=== PATIENT | female | born 1950 | race Hispanic/Latino ===

== ENCOUNTER → 2020-12-24 06:54 | Outpatient (CLI) | payer MEDICARE, SELFPAY ==
[2020-12-24 17:32] LABS: SARS-CoV-2 RNA PCR Negative
== END ==
PROVIDERS: PCP Family Medicine; Visit Provider Family Medicine
DX: R68.89 Other general symptoms and signs (principal); Z20.822 Contact with and (suspected) exposure to COVID-19
CPT/HCPCS: C9803; U0003; U0005

== ENCOUNTER → 2021-09-21 08:14 | Outpatient (CLI) | payer MEDICARE, SELFPAY ==
[2021-09-22 03:58] LABS: SARS-CoV-2 RNA PCR Negative
== END ==
PROVIDERS: PCP Family Medicine; Visit Provider Family Medicine
DX: R09.81 Nasal congestion (principal); R05.9 Cough, unspecified; Z20.822 Contact with and (suspected) exposure to COVID-19
CPT/HCPCS: C9803; U0003; U0005

== ENCOUNTER → 2021-10-16 00:16 | Outpatient (CLI) | payer MEDICARE, SELFPAY ==
[2021-10-16 20:23] LABS: SARS-CoV-2 RNA PCR Negative
== END ==
PROVIDERS: PCP Family Medicine; Visit Provider Family Medicine
DX: J02.9 Acute pharyngitis, unspecified (principal); R51.9 Headache, unspecified; R09.89 Other specified symptoms and signs involving the circulatory and respiratory systems; Z20.822 Contact with and (suspected) exposure to COVID-19
CPT/HCPCS: C9803; U0003; U0005

== ENCOUNTER 2022-09-05 08:59 | Outpatient (CLI) | payer MEDICARE, SELFPAY ==
--- NOTE | 2022-09-12 14:21 | WPDHOMESLEEP ---
Sleep Study - Home Unattended Date of Study: 09/05/22 Ordering Provider: Patricia Carty PA-C Interpreting Provider: Yola Putnam, DO Home Sleep Study Type: Watch PAT Height: 1.75 m Weight: 108.862 kg Body Mass Index: 35.4 Neck Circumference (inches): 14.25 [place]: 7 Reason for Sleep Study Loud snoring, nighttime awakenings Sleep History The patient is a 72-year-old female with hypertension, diabetes, hypothyroidism, chronic headaches, anxiety and history of tobacco use that had a sleep study ordered by her primary care for evaluation of sleep apnea. The patient denies awakening from sleep short of breath. She rarely awakens at night with heartburn, belching or cough. She constantly snores loud enough that others complain. She denies having trouble sleeping when she has a cold. She denies waking up gasping for air throughout the night. She denies having breathing problems at night observed by herself or others. She denies sweating excessively at night. She occasionally has heart palpitations or irregular heartbeats during the night. She rarely falls asleep during the day and never while driving. She denies sleep paralysis and hypnagogic/ hypnopompic hallucinations. She denies having trouble at school or work due to sleepiness. She denies feeling afraid of going to sleep. She occasionally has nightmares and frequently remembers her dreams. She frequently has thoughts racing through her mind. She rarely feels sad or depressed. She frequently has anxiety. She rarely has muscular tension. He denies noticing parts of her body jerk. She denies experiencing crawling and aching feelings in her legs and occasionally has leg pain during the night. She frequently grinds her teeth during sleep but never awakens with morning jaw pain. She is rarely bothered by pain during the day and rarely awakened by pain during the night. He occasionally wakes up feeling stiff in the morning. He rarely wakes up with sore or achy muscles. She denies waking up with pain in the neck, spine or other joints. She goes to bed between 11:30 p.m. to 12:30 a.m. on both weekdays and weekends. The amount of time it takes her to fall asleep is variable. He wakes up 1-2 times throughout the night to urinate. He wakes up between 8-10 a.m. on both weekdays and weekends. She typically gets 8-10 hours of sleep per night. She will stay in bed for a few minutes after waking up in the morning. She currently lives alone. He does not consume any caffeinated beverages within 2 hours of bedtime. She does not engage in physical exercise before bedtime. She will watch television before falling asleep. She denies taking naps in the afternoon or the evening. She drinks 1-2 cups of caffeinated beverage per day. She quit smoking 35 years ago. She denies alcohol and recreational drug use. [facility] Past Medical History Medical History Chronic headaches History of chicken pox History of measles History of mumps History of rubella Family History Family History Sibling Hypertension Mother Patient's mother is Family history of lung cancer Father Patient's father is Family history of lung cancer Other Family history of malignant neoplasm of breast Social History Social History Social History: Caffeine-daily Smoking status: Former smoker Smoking end date: 09/25/86 Alcohol intake: current Alcohol use details: occasionally Substance use: never Substance use type: does not use Gender identity (if verbalized by the patient): Female Medications Home Medications Medication Instructions Recorded Confirmed Type ascorbic acid (vitamin C) 1,000 mg 1 g PO DAILY 07/31/20 08/03/22 History tablet calcium carbonate 600 mg calcium 600 mg PO STEPHANIE
[2022-09-12 14:36] VITALS: BMI 35.4
== END 2022-09-06 11:41 | disposition home or self-care (01) ==
LOC: ANHCSM 09:01
PROVIDERS: PCP Family Medicine; Visit Provider Physician Assistant
DX: G47.33 Obstructive sleep apnea (adult) (pediatric) (principal)
CPT/HCPCS: 95800

== ENCOUNTER → 2022-12-27 10:53 | Outpatient (CLI) | payer MEDICARE, SELFPAY ==
--- NOTE | ~2022-12-27 | XR_ITS ---
EXAMINATION: XR chest 2V Exam Date/Time: 12/27/2022 11:05 CDT HISTORY: LEFT SIDE INTERMITENT CP FOR 3 MONTHS Comparison: None available. RESULT: Lines, tubes, and devices: Cholecystectomy clips. Lungs and pleura: Patient mildly rotated towards the right. Senescent changes. Ill-defined nodular o pacity in the right lower lung. Cardiomediastinal silhouette: Mild aortic unfolding. Prominent central pulmonary arteries as can be seen with pulmonary arterial hypertension. Other: No acute osseous or upper abdominal finding. IMPRESSION: No radiographic finding in the chest that would explain left-sided chest pain. Nodular opacity in the right lower lung, recommend comparison to outside studies if available. Otherwise, consider low-dose noncontrast CT of the chest for further evaluation. Reviewed, dictated and finalized at location K. IMPRESSION: No radiographic finding in the chest that would explain left-sided chest pain. Nodular opacity in the right lower lung, recommend comparison to outside studie s if available. Otherwise, consider low-dose noncontrast CT of the chest for fu rther evaluation.
== END ==
PROVIDERS: PCP Family Medicine; Visit Provider Physician Assistant
DX: R07.9 Chest pain, unspecified (principal); R91.8 Other nonspecific abnormal finding of lung field
CPT/HCPCS: 71046

== ENCOUNTER 2023-10-04 05:52 | Emergency (ER) | payer MEDICARE, SELFPAY ==
[2023-10-04] VITALS (16 sets, daily range): BP systolic 99–153; BP diastolic 54–87; PULSE 59–87; RESP 10–20; TEMP 36.4–36.8; O2SAT 95–100
--- NOTE | ~2023-10-04 | XR_ITS ---
Portable chest x-ray Comparison: 12/27/2022 Clinical History: Chest pain Findings: Lungs are clear, without focal consolidation or pleural effusion. Probable calcified granu arabella and small calcified right paratracheal lymph node. Cardiomediastinal silhouette is stable. Bon es and soft tissues are unremarkable. Impression: No acute abnormality evident. Reviewed, dictated and finalized at [facility]. [employer] Impression: No acute abnormality evident.
--- NOTE | 2023-10-04 05:58 | ECG_ITS ---
Measurements Intervals [place] Rate: 80 P: 46 AR: 216 QRS: 14 QRSD: 90 T: 46 QT: 367 QTc: 426 Interpretive Statements SINUS RHYTHM WITH FIRST DEGREE AV BLOCK BORDERLINE ST ABNORMALITY- ANTEROLATERAL LEADS BASELINE ARTIFACT- I, II, AVR, AVL BORDERLINE ECG NO PREVIOUS ECG AVAILABLE FOR COMPARISON Electronically Signed On 10-04-2023 6:54:57 GLAZING SUPERINTENDENT by Hudson Chan D.O.
[2023-10-04] MEDS: ASPIRIN 81 MG CHEWABLE TABLET 324 MG (06:11)
[2023-10-04] MEDS: NITROGLYCERIN SL 0.4 MG TABLET SUBLINGUAL (06:11)
[2023-10-04 06:13] LABS: Basophils Percent Auto 0.5 % (0.2-1.2); Eosinophils Absolute Auto 0.1 K/mm3 (0-0.3); Eosinophils Percent Auto 1.7 % (0-4.4); Hematocrit 38.7 % (37.0-47.0); Hemoglobin 12.2 g/dL (12.0-15.0); Immature Granulocyte Absolute 0.01 K/mm3 (0.00-0.031); Immature Granulocyte Percent A 0.2 % (0-0.5); Lymphocytes Absolute Auto 2.73 K/mm3 (0.9-3.2); Lymphocytes Percent Auto 41.4 % (18.3-44.2); Mean Corpuscular HGB Conc 31.5 g/dl (32-36); Mean Corpuscular Hemoglobin 30.5 pg (26-34); Mean Corpuscular Volume 96.8 fl (80-100); Mean Platelet Volume 10.6 fl (7.4-10.4); Monocytes Absolute Auto 0.4 K/mm3 (0.1-0.6); Monocytes Percent Auto 6.1 % (2.6-8.5); Neutrophils Absolute Auto 3.3 K/mm3 (1.3-6.7); Neutrophils Percent Auto 50.1 % (45.5-73.1); Platelet Count Result 210 k/mm3 (150-375); Red Cell Distribution Width 13.9 % (11.5-14.5); White Blood Count 6.6 K/mm3 (4.5-10.0)
--- NOTE | 2023-10-04 06:19 | ED.GENADULT ---
HPI - General Adult General Chief complaint: Chest Pain <Alessio Vale MD - Last Filed: 10/04/23 06:20> Stated complaint: chest pain <Alessio Vale MD - Last Filed: 10/04/23 06:20> Time Seen by Provider: 10/04/23 06:09 <Alessio Vale MD - Last Filed: 10/04/23 06:20> History of Present Illness HPI narrative: Patient is a 73-year-old female who presents emergency department with chief complaint of chest pain. Patient reports she does have history of hiatal hernia this evening she woke up and started having discomfort in her left side of her chest behind her left breast. The patient states it is a fullness feeling reports no shortness of breath denies diaphoresis denies radiation to her arm. The patient reports she has had a stress test in the past and actually had a cardiac catheterization in 2018 the patient reports these did not show any acute abnormality <Alessio Vale MD - Last Filed: 10/04/23 06:20> Related Data Home medications: Home Medications Medication Instructions Recorded Confirmed ascorbic acid (vitamin C) 1,000 mg 1 g PO DAILY 07/31/20 04/12/23 tablet cholecalciferol (vitamin D3) 25 25 mcg PO DAILY 07/31/20 04/12/23 mcg (1,000 unit) capsule aspirin 81 mg tablet,delayed 81 mg PO DAILY 12/08/20 04/12/23 release CPAP 02/06/23 04/12/23 <Alessio Vale MD - Last Filed: 10/04/23 06:20> Allergies/adverse reactions: Allergies Allergy/AdvReac Type Severity Reaction Status Date / Time lisinopril Allergy Unknown Cough Verified 07/14/23 09:58 <Alessio Vale MD - Last Filed: 10/04/23 06:20> Review of Systems Review of Systems: A 10 system review of systems was completed on the patient and is negative except for what is stated in the HPI. Nursing and ancillary documentation was reviewed. <Alessio Vale MD - Last Filed: 10/04/23 06:20> [facility] Past Medical History Medical History: Medical History Chronic headaches History of chicken pox History of measles History of mumps History of rubella RUDDY (obstructive sleep apnea) <Alessio Vale MD - Last Filed: 10/04/23 06:20> Family History Family History: Family History Sibling Hypertension Mother Patient's mother is Family history of lung cancer Father Patient's father is Family history of lung cancer Other Family history of malignant neoplasm of breast <Alessio Vale MD - Last Filed: 10/04/23 06:20> Social History Social History: Social History Social History: Caffeine-daily Smoking status: Former smoker Smoking end date: 09/25/86 Alcohol intake: current Alcohol use details: occasionally Substance use: never Substance use type: does not use Lack of Transportation: No Lack of Food: Never True Current Housing: I Have Housing Concerned About Future Housing: No Difficulty Paying Gas/Electric Bills: No Difficulty Paying for Meds: No Currently Unemployed: No Education: High School Diploma/GED Difficulty w/ Childcare or Family Care: No Gender identity (if verbalized by the patient): Female <Alessio Vale MD - Last Filed: 10/04/23 06:20> Exam Narrative: GENERAL: Well-appearing, well-nourished, and in no acute distress. HEAD: Normocephalic, atraumatic. EYES: PERRLA and EOMI. ENT: Nares clear, no rhinorrhea or epistaxis. Mucous membranes moist. NECK: Supple. CHEST: Clear to auscultation. No respiratory distress. HEART: Regular rate and rhythm. No murmur heard. Normal peripheral pulses. ABDOMEN: Soft, nontender, nondistended, normal active bowel sounds. EXTREMITIES: Normal range of motion. No edema. SKIN: Warm, dry, no rash. NEURO: No fo
[2023-10-04 06:26] LABS: Alanine Aminotransferase 17 U/L (6-35); Albumin Level 4.5 g/dL (3.5-5.1); Alkaline Phosphatase 90 U/L (38-126); Anion Gap 9 mmol/L (8-16); Aspartate Amino Transferase 27 U/L (14-36); Bilirubin,Total 0.4 mg/dL (0.2-1.3); Blood Urea Nitrogen 24 mg/dL (7-17); Calcium 10.1 mg/dL (8.4-10.2); Carbon Dioxide 29 mmol/L (22-30); Chloride 101 mmol/L (98-107); Estimated CRCL calculation 59 ml/min; Estimated Glomerular Filt Rate 55; Glucose 146 mg/dL (65-110); Lipase 262 U/L (23-300); Potassium 3.1 mmol/L (3.4-5.0); Sodium 139 mmol/L (137-145)
[2023-10-04 06:37] LABS: Troponin I < 0.012 ng/mL (0.000-0.034)
[2023-10-04 06:48] LABS: Prothrombin Time 13.1 Seconds (11.1-14.7)
[2023-10-04 06:49] LABS: Partial Thromboplastin Time 30.6 SECONDS (22.3-36.8)
--- NOTE | 2023-10-04 09:02 | ECG_ITS ---
Measurements Intervals [place] Rate: 62 P: 26 [place]: 243 QRS: 0 QRSD: 94 T: 30 QT: 395 QTc: 403 Interpretive Statements SINUS RHYTHM WITH FIRST DEGREE AV BLOCK BORDERLINE ECG COMPARED TO ECG 10/04/2023 06:06:56 NO SIGNIFICANT CHANGES Electronically Signed On 10-04-2023 9:44:53 TABLEAU ANALYST by Hudson Chan D.O.
[2023-10-04 09:22] LABS: Troponin I < 0.012 ng/mL (0.000-0.034)
== END 2023-10-04 10:49 | disposition home or self-care (01) ==
PROVIDERS: Emergency Provider Emergency Medicine; PCP Family Medicine
DX: R07.9 Chest pain, unspecified (principal); Z87.891 Personal history of nicotine dependence
CPT/HCPCS: 36415; 71045; 80053; 83690; 84484; 85025; 85610; 85730; 93005; 99284; A9270

== ENCOUNTER 2024-03-04 13:45 | Outpatient (CLI) | payer MEDICARE, SELFPAY ==
[2024-03-04 15:21] LABS: Basophils Percent Auto 0.5 % (0.2-1.2); Eosinophils Absolute Auto 0.1 K/mm3 (0-0.3); Eosinophils Percent Auto 0.8 % (0-4.4); Hematocrit 38.5 % (37.0-47.0); Hemoglobin 12.4 g/dL (12.0-15.0); Immature Granulocyte Absolute 0.02 K/mm3 (0.00-0.031); Immature Granulocyte Percent A 0.3 % (0-0.5); Lymphocytes Absolute Auto 2.02 K/mm3 (0.9-3.2); Lymphocytes Percent Auto 27.7 % (18.3-44.2); Mean Corpuscular HGB Conc 32.2 g/dl (32-36); Mean Corpuscular Volume 96.3 fl (80-100); Monocytes Absolute Auto 0.3 K/mm3 (0.1-0.6); Monocytes Percent Auto 4.5 % (2.6-8.5); Neutrophils Absolute Auto 4.8 K/mm3 (1.3-6.7); Neutrophils Percent Auto 66.2 % (45.5-73.1); Platelet Count Result 234 k/mm3 (150-375); Red Cell Distribution Width 14.6 % (11.5-14.5); White Blood Count 7.3 K/mm3 (4.5-10.0)
[2024-03-04 15:31] LABS: Prothrombin Time 13.4 Seconds (11.1-14.7)
[2024-03-04 15:44] LABS: Alanine Aminotransferase 14 U/L (6-35); Albumin Level 4.7 g/dL (3.5-5.1); Alkaline Phosphatase 86 U/L (38-126); Anion Gap 7 mmol/L (4-12); Aspartate Amino Transferase 22 U/L (14-36); Bilirubin,Total 0.5 mg/dL (0.2-1.3); Blood Urea Nitrogen 21 mg/dL (7-17); Calcium 10.4 mg/dL (8.4-10.2); Carbon Dioxide 29 mmol/L (22-30); Chloride 104 mmol/L (98-107); Estimated Glomerular Filt Rate > 60; Glucose 98 mg/dL (65-110); Potassium 3.5 mmol/L (3.4-5.0); Sodium 140 mmol/L (137-145)
== END 2024-03-04 13:46 | disposition home or self-care (01) ==
PROVIDERS: PCP Family Medicine; Visit Provider Urology
DX: N81.4 Uterovaginal prolapse, unspecified (principal); Z01.818 Encounter for other preprocedural examination
CPT/HCPCS: 36415; 80053; 85025; 85610; 85730; 86850; 86900; 86901

== ENCOUNTER 2024-03-10 19:10 | Emergency (ER) | payer MEDICARE, SELFPAY ==
--- NOTE | ~2024-03-10 | CT_ITS ---
CT abdomen pelvis w con Ordering provider: Christelle Rhodes PA-C History: 74 years Female with . low abd pain, diarrhea, fever . Comparison: September 22, 2004 Technique: CT abdomen and pelvis with IV and without oral contrast. Radiation reduction technique uti lized. DLP is 979.96 mGy. Findings: VISUALIZED LOWER CHEST: Nodule in the right lower lobe measuring 6 mm. Dependent atelectatic changes. UPPER ABDOMINAL ORGANS: Liver: Normal. Gallbladder: Status post cholecystectomy. Spleen: Normal. Stomach/duodenum: Normal. Pancreas: Normal. Adrenals: Normal. Kidneys: Cysts in the left kidney mid pole measuring 1 cm. PELVIC ORGANS: The bladder is normal. BOWEL AND MESENTERY: Colon: No masses seen in the sigmoid colon which measures 6.2 x 4.8 x 6.1 cm with minimal surrounding fat stranding. This may be a mass are due to diverticulitis. Sigmoidoscopy is advised... Normal appe ndix. Small Bowel: Normal. No obstruction. Peritoneum/mesentery: No free air. Minimal free fluid in the pelvis. No mesenteric lymphadenopathy. RETROPERITONEUM: Mild atheromatous disease of the abdominal aorta. Tortuous slightly dilated iliac a rteries. No retroperitoneal lymphadenopathy. Small para-aortic lymph nodes are noted MUSCULOSKELETAL: Superficial soft tissues: The superficial soft tissues are normal. Bones: Age appropriate degenerative changes of the spine. IMPRESSION: 1. Highly suggestive mass in the sigmoid colon with surrounding fat stranding. This may be malignant or inflammatory. Sigmoidoscopy is advised. 2. Minimal fluid in the pelvis. 3. No evidence of obstruction. Reviewed, dictated and finalized at location A.
--- NOTE | ~2024-03-10 | XR_ITS ---
XR chest 2V Ordering provider: Christelle Rhodes PA-C History: 74 years Female with . fever . Comparison: October 04, 2023 FINDINGS: MEDIASTINUM: The cardiac silhouette is not enlarged. LUNGS: No infiltrates, effusions or pneumothorax. OTHER: No free air under the diaphragm. Degenerative changes of the spine. IMPRESSION: No acute cardiopulmonary pathology. Reviewed, dictated and finalized at location A.
[2024-03-10 19:16] VITALS: BP 137/67; PULSE 97; RESP 19; TEMP 37.2; O2SAT 97
--- NOTE | 2024-03-10 19:30 | ED.FEVER ---
HPI - Fever General Chief Complaint: Fever Stated Complaint: fever Time Seen by Provider: 03/10/24 19:18 Source: patient Mode of arrival: ambulatory Limitations: no limitations History of Present Illness HPI Narrative: This is a 74-year-old female that presents to the emergency department for fever today. Reports over the last couple of days she has had some lower abdominal discomfort. She has also had some loose stools. Today she developed a fever which prompted her to be seen. She is supposed to have a surgery tomorrow morning. Denies cough, congestion, sore throat, vomiting, or dysuria Related Data Home Medications Medication Instructions Recorded Confirmed ascorbic acid (vitamin C) 1,000 mg 1 g PO DAILY 07/31/20 03/04/24 tablet cholecalciferol (vitamin D3) 25 25 mcg PO DAILY 07/31/20 03/04/24 mcg (1,000 unit) capsule aspirin 81 mg tablet,delayed 81 mg PO DAILY 12/08/20 03/04/24 release CPAP 02/06/23 11/20/23 xcghdjcycf-agoczecategxa-stvmxmqf 1 tablet PO TID PRN Headache 03/04/24 03/04/24 50 mg-325 mg-40 mg tablet triamterene 37.5 1 cap PO QAM 03/04/24 03/04/24 mg-hydrochlorothiazide 25 mg capsule Allergies Allergy/AdvReac Type Severity Reaction Status Date / Time lisinopril AdvReac Unknown Cough Verified 03/10/24 19:21 Review of Systems Review of Systems: CONSTITUTIONAL: Reports fever ENT: Denies rhinorrhea, congestion, sore throat RESPIRATORY: Denies cough GASTROINTESTINAL: Reports abdominal pain and diarrhea. Denies nausea, vomiting GENITOURINARY: Denies dysuria All systems reviewed & are unremarkable except as noted in HPI and below PMFSH Past Medical History Medical History Chronic headaches History of chicken pox History of measles History of mumps History of rubella RUDDY (obstructive sleep apnea) Family History Family History Sibling Hypertension Mother Patient's mother is Family history of lung cancer Father Patient's father is Family history of lung cancer Other Family history of malignant neoplasm of breast Social History Social History Social History: Caffeine-daily Smoking packs per day: 0.5 Smoking cigarettes per day: 10.0 Years smoked: 15 Smoking pack-years: 7.50 Smoking status: Former smoker Tobacco type: cigarettes Smoking end date: 03/25/88 Alcohol intake: current Alcohol use details: occasionally Substance use: never Substance use type: does not use Do You Feel Safe in your Home?: Yes Lack of Transportation: No Lack of Food: Never True Current Housing: I Have Housing Concerned About Future Housing: No Difficulty Paying Gas/Electric Bills: No Difficulty Paying for Meds: No Currently Unemployed: No Education: High School Diploma/GED Difficulty w/ Childcare or Family Care: No Living arrangements: alone Gender identity (if verbalized by the patient): Female Spiritual care concerns: No Exam Narrative: GENERAL: Well-appearing, well-nourished, and in no acute distress. HEAD: Normocephalic, atraumatic. EYES: EOMI. ENT: Nares clear, no rhinorrhea or epistaxis. Mucous membranes moist. Oropharynx without tonsillar hypertrophy exudate or other lesions. Bilateral TMs pearly [place] non-bulging NECK: Supple. No adenopathy or masses. CHEST: Clear to auscultation. No respiratory distress. No wheezes rales or rhonchi HEART: Regular rate and rhythm. No murmur heard. Normal peripheral pulses. ABDOMEN: Soft, nondistended, normal active bowel sounds. Mild tenderness to palpation throughout the lower abdomen, without guarding EXTREMITIES: Normal range of motion. No edema. SKIN: Warm, dry, no rash. NEURO: No focal deficits. Alert and oriented x3. PSYCH: Normal mood and affect Course Consultations Consultation #1: spo
[2024-03-10 19:40] LABS: Basophils Percent Auto 0.2 % (0.2-1.2); Eosinophils Percent Auto 0.4 % (0-4.4); Hematocrit 33.5 % (37.0-47.0); Hemoglobin 10.9 g/dL (12.0-15.0); Immature Granulocyte Absolute 0.03 K/mm3 (0.00-0.031); Immature Granulocyte Percent A 0.3 % (0-0.5); Lymphocytes Absolute Auto 1.75 K/mm3 (0.9-3.2); Lymphocytes Percent Auto 19.4 % (18.3-44.2); Mean Corpuscular HGB Conc 32.5 g/dl (32-36); Mean Corpuscular Hemoglobin 30.6 pg (26-34); Mean Corpuscular Volume 94.1 fl (80-100); Monocytes Absolute Auto 0.6 K/mm3 (0.1-0.6); Monocytes Percent Auto 6.4 % (2.6-8.5); Neutrophils Absolute Auto 6.6 K/mm3 (1.3-6.7); Neutrophils Percent Auto 73.3 % (45.5-73.1); Platelet Count Result 223 k/mm3 (150-375); Red Blood Count 3.56 M/mm3 (4.2-5.4); Red Cell Distribution Width 14.2 % (11.5-14.5)
[2024-03-10 19:41] VITALS: TEMP 37.3
--- NOTE | 2024-03-10 19:42 | PC.NURSE ---
Patient ambulated to the bathroom and back to her room with steady gait with her cane to provide a urine sample. Patient stated she felt warm and requested to have her temp rechecked. Temp was rechecked and was 99.2 orally, ERP notified.
[2024-03-10] MEDS: ACETAMINOPHEN 500 MG TABLET 1000 MG PO (19:48)
[2024-03-10 19:51] LABS: Alanine Aminotransferase 12 U/L (6-35); Alkaline Phosphatase 80 U/L (38-126); Anion Gap 5 mmol/L (4-12); Aspartate Amino Transferase 19 U/L (14-36); Bilirubin,Total 0.4 mg/dL (0.2-1.3); Blood Urea Nitrogen 22 mg/dL (7-17); Calcium 9.9 mg/dL (8.4-10.2); Carbon Dioxide 30 mmol/L (22-30); Chloride 105 mmol/L (98-107); Estimated CRCL calculation 56 ml/min; Estimated Glomerular Filt Rate 55; Glucose 141 mg/dL (65-110); Lipase 75 U/L (23-300); Potassium 3.8 mmol/L (3.4-5.0); Sodium 140 mmol/L (137-145)
[2024-03-10 19:52] LABS: Appearance Urine Cloudy (Clear); Bacteria Urine 3+ /hpf; Bilirubin Urine Negative (Negative); Blood Urine Negative (Negative); Color Urine Yellow (Yellow); Glucose Urine UA Negative (Negative); Ketones Urine Negative (Negative); Leukocyte Esterase Ur 2+ LEU/UL (Negative); Nitrate Urine Negative (Negative); Non Pathogenic Casts 0-2; Protein Urine Negative (Negative); Specific Grav Ur 1.025 (1.001-1.035); Squamous Epithelial Cell Urine Many /hpf (Few); WBC Urine 21-50 /hpf (0-3); pH Urine 5.5 (5.0-9.0)
[2024-03-10 19:53] LABS: Add Urine Microscopic? YES
[2024-03-10 20:15] VITALS: TEMP 36.9
[2024-03-10 20:16] LABS: Influenza A QL RT-PCR Negative (Negative); Influenza B QL RT-PCR Negative (Negative); RSV RNA, RT-PCR Negative (Negative); SARS-CoV-2 RNA PCR Negative (Negative)
[2024-03-10] MEDS: AMOXICILLIN/CLAVULANATE K 875-125 MG TAB 1 TABLET PO (21:31)
--- NOTE | 2024-03-10 21:44 | PC.NURSE ---
Patient given crackers and water upon request.
[2024-03-10 21:47] VITALS: BP 133/76; PULSE 92; RESP 20; TEMP 37.4; O2SAT 97
== END 2024-03-10 22:35 | disposition home or self-care (01) ==
PROVIDERS: Emergency Provider Physician Assistant; PCP Family Medicine
DX: K57.92 Diverticulitis of intestine, part unspecified, without perforation or abscess without bleeding (principal); K63.89 Other specified diseases of intestine; Z79.82 Long term (current) use of aspirin; Z79.899 Other long term (current) drug therapy; Z87.891 Personal history of nicotine dependence; Z20.822 Contact with and (suspected) exposure to COVID-19
CPT/HCPCS: 36415; 71046; 74177; 80053; 81001; 83690; 85025; 87077; 87086; 87088; 87186; 87637; 99284; A9270; Q9967

== ENCOUNTER 2024-03-27 02:01 | Day surgery (SDC) | payer MEDICARE, SELFPAY ==
[2024-03-15 11:53] VITALS: BMI 35.0
--- NOTE | 2024-03-15 14:39 | PC.NURSE ---
Verifies with Meri Lim NP in Dr. Buck office if to proceed with colonoscopy on 04/01/2024 or to postpone for the 6 weeks after diverticulitis treatment. She wants patient to proceed with colonoscopy as sched. on .
[2024-03-27 06:47] VITALS: BP 172/76; PULSE 94; RESP 16; TEMP 36.3; O2SAT 99
[2024-03-27] MEDS: LACTATED RINGERS 1,000 ML 150 ML IV CONT (06:58)
[2024-03-27 07:01] LABS: Glucose Point of Care 166 mg/dl (65-105)
--- NOTE | 2024-03-27 07:25 | WPDHPUPDATE1 ---
History and Physical Update Update Date/Time: 03/27/24 07:25 History and Physical has been reviewed, including an updated exam of the patient. There are NO changes in the patient's condition. Risks, benefits, and alternatives have been discussed and questions answered. Patient agrees to proceed with procedure.
--- NOTE | 2024-03-27 07:34 | WPDANESEPPF ---
Anes - Initial Pre Proc Eval Procedure: Operation Date: 03/27/24 08:00 Proposed Procedures p Colonoscopy - Heath Gu MD Date/Time: 03/27/24 07:34 Surgeon: Heath Gu MD Pre Op Diagnosis: Anemia, Abnormal radiologic findings Patient Data Age: 74 Gender: F Height: 1.73 m Weight: 101.3 kg Last Vital Signs Temp 97.3 F L 03/27/24 06:47 Pulse 94 03/27/24 06:47 Resp 16 03/27/24 06:47 BP 172/76 H 03/27/24 06:47 Pulse Ox 99 03/27/24 06:47 O2 Del Method Room Air 03/27/24 06:47 Allergies Allergy/AdvReac Type Severity Reaction Status Date / Time lisinopril AdvReac Unknown Cough Verified 03/27/24 06:45 Home Medications Medication Instructions Recorded Confirmed Type ascorbic acid (vitamin C) 1,000 mg 1 g PO DAILY 07/31/20 03/15/24 History tablet cholecalciferol (vitamin D3) 25 25 mcg PO DAILY 07/31/20 03/15/24 History mcg (1,000 unit) capsule gsmqbdfu-kowj-nccg 8 mg-folic 400 1 tablet PO DAILY #90 tabs 09/29/20 03/15/24 Rx mcg-K 50 mcg-lutein 300 mcg tablet (Multivitamin Women 50 Plus) aspirin 81 mg tablet,delayed 81 mg PO DAILY 12/08/20 03/15/24 History release CPAP 02/06/23 03/15/24 History levothyroxine 88 mcg tablet See Rx Instructions .Route 04/19/23 03/15/24 Rx (Euthyrox) .COMPLEX #90 tabs alprazolam 0.25 mg tablet 0.25 mg PO TID PRN anxiety #90 tabs 10/10/23 03/15/24 Rx atorvastatin 20 mg tablet 20 mg PO QHS #90 tabs 12/15/23 03/15/24 Rx metformin 500 mg tablet,extended 1,000 mg PO BID #360 tabs 12/15/23 03/15/24 Rx release 24 hr hrwomobplj-xziuzqwioipxd-eawtdvnc 1 tablet PO TID PRN Headache 03/04/24 03/15/24 History 50 mg-325 mg-40 mg tablet amoxicillin 875 mg-potassium 1 tablet PO BID 03/12/24 03/15/24 History clavulanate 125 mg tablet triamterene 37.5 1 cap PO QAM #90 caps 03/26/24 Rx mg-hydrochlorothiazide 25 mg capsule Laboratory Tests 03/27/24 06:56 POC Capillary Glucose 166 H mg/dl (65-105) Patient hx anesthesia problems: none Family hx anesthesia problems: none Results Review: All pre-operative results and documents have been reviewed as part of the pre-operative evaluation. [facility] Past Medical History Medical History Chronic headaches History of chicken pox History of measles History of mumps History of rubella RUDDY (obstructive sleep apnea) Family History Family History Sibling Hypertension Mother Patient's mother is Family history of lung cancer Father Patient's father is Family history of lung cancer Other Family history of malignant neoplasm of breast Social History Social History Social History: Caffeine-daily Smoking packs per day: 0.5 Smoking cigarettes per day: 10.0 Years smoked: 15 Smoking pack-years: 7.50 Smoking status: Former smoker Tobacco type: cigarettes Smoking end date: 03/25/88 Alcohol intake: current Alcohol use details: Rarely Substance use: never Substance use type: does not use Do You Feel Safe in your Home?: Yes Lack of Transportation: No Lack of Food: Never True Current Housing: I Have Housing Concerned About Future Housing: No Difficulty Paying Gas/Electric Bills: No Difficulty Paying for Meds: No Currently Unemployed: No Education: High School Diploma/GED Difficulty w/ Childcare or Family Care: No Living arrangements: alone Gender identity (if verbalized by the patient): Female Spiritual care concerns: No Anes - Eval Final PreProcedure Day of Procedure 03/27/24 07:34 Patient weight: normal Heart: regular rate and rhythm Lungs: clear to auscultation Airway: Mallampati scale class II Neurological: alert and oriented Last oral intake: >/= 8 hours ASA classification: III Emergent: no Anesth
[2024-03-27 08:18] VITALS: BP 86/45; PULSE 78; RESP 24; O2SAT 100
[2024-03-27 08:28] VITALS: BP 110/52; PULSE 73; RESP 18; O2SAT 100
[2024-03-27 08:38] VITALS: BP 117/68; PULSE 64; RESP 21; O2SAT 100
== END 2024-03-27 08:49 | disposition home or self-care (01) ==
PROVIDERS: PCP Family Medicine; Referring Provider Nurse Practitioner Family; Visit Provider Internal Medicine Gastroenterology
PROC: 0DJD8ZZ Inspection of Lower Intestinal Tract, Via Natural or Artificial Opening Endoscopic (ICD-10-PCS; CPT 45378; principal; 2024-03-27 08:00)
DX: D12.3 Benign neoplasm of transverse colon (principal); D12.8 Benign neoplasm of rectum; K64.8 Other hemorrhoids; K57.30 Diverticulosis of large intestine without perforation or abscess without bleeding; D64.9 Anemia, unspecified; G47.33 Obstructive sleep apnea (adult) (pediatric); I10 Essential (primary) hypertension; E78.5 Hyperlipidemia, unspecified; E11.9 Type 2 diabetes mellitus without complications; F41.9 Anxiety disorder, unspecified; R51.9 Headache, unspecified; Z79.82 Long term (current) use of aspirin; Z79.84 Long term (current) use of oral hypoglycemic drugs; Z99.89 Dependence on other enabling machines and devices; Z86.010 Personal history of colon polyps; Z87.891 Personal history of nicotine dependence; Z80.1 Family history of malignant neoplasm of trachea, bronchus and lung; Z80.3 Family history of malignant neoplasm of breast
CPT/HCPCS: 45385; 36415; 80053; 82948; 85025; 85610; 85730; 86850; 86900; 86901; 88305; J2371; J2704; J7120

== ENCOUNTER 2024-04-24 13:27 | Outpatient (CLI) | payer MEDICARE, SELFPAY ==
--- NOTE | ~2024-04-24 | CT_ITS ---
EXAMINATION: CT pelvis wo con DATE: 04/24/2024 13:51 INDICATION: Diverticulitis of intestine, part unspecified. TECHNIQUE: Computed tomography (CT) of the pelvis was performed without intravenous contrast. Automat ed exposure control and iterative reconstruction technique were employed. The dose-length product was 1110.95 mGy-cm. COMPARISON: CT abdomen and pelvis 03/10/2024 FINDINGS: There are no dilated loops of bowel. There is diverticulosis of the colon without evidence of diverticulitis. There are no pathologically enlarged lymph nodes. There is no free intraperitoneal fluid. There is severe lumbar spondylosis. IMPRESSION: 1. Resolved sigmoid diverticulitis. Reviewed, dictated and finalized at location A.
== END 2024-04-24 13:28 | disposition home or self-care (01) ==
PROVIDERS: PCP Family Medicine; Visit Provider Family Medicine
DX: K57.92 Diverticulitis of intestine, part unspecified, without perforation or abscess without bleeding (principal)
CPT/HCPCS: 72192

== ENCOUNTER 2024-08-05 13:55 | Outpatient (CLI) | payer MEDICARE, SELFPAY ==
[2024-08-05 15:24] LABS: Basophils Percent Auto 0.4 % (0.2-1.2); Eosinophils Absolute Auto 0.1 K/mm3 (0-0.3); Eosinophils Percent Auto 1.2 % (0-4.4); Hematocrit 39.5 % (37.0-47.0); Hemoglobin 12.7 g/dL (12.0-15.0); Immature Granulocyte Absolute 0.02 K/mm3 (0.00-0.031); Immature Granulocyte Percent A 0.3 % (0-0.5); Lymphocytes Absolute Auto 2.28 K/mm3 (0.9-3.2); Lymphocytes Percent Auto 29.4 % (18.3-44.2); Mean Corpuscular HGB Conc 32.2 g/dl (32-36); Mean Corpuscular Hemoglobin 30.2 pg (26-34); Mean Platelet Volume 10.3 fl (7.4-10.4); Monocytes Absolute Auto 0.4 K/mm3 (0.1-0.6); Neutrophils Percent Auto 63.7 % (45.5-73.1); Platelet Count Result 231 k/mm3 (150-375); Red Cell Distribution Width 13.8 % (11.5-14.5); White Blood Count 7.8 K/mm3 (4.5-10.0)
[2024-08-05 15:36] LABS: Alanine Aminotransferase 14 U/L (6-35); Albumin Level 4.6 g/dL (3.5-5.1); Alkaline Phosphatase 82 U/L (38-126); Anion Gap 8 mmol/L (4-12); Aspartate Amino Transferase 23 U/L (14-36); Bilirubin,Total 0.4 mg/dL (0.2-1.3); Blood Urea Nitrogen 25 mg/dL (7-17); Calcium 10.7 mg/dL (8.4-10.2); Carbon Dioxide 29 mmol/L (22-30); Chloride 102 mmol/L (98-107); Estimated Glomerular Filt Rate 55; Glucose 92 mg/dL (65-110); Potassium 4.1 mmol/L (3.4-5.0); Sodium 139 mmol/L (137-145)
[2024-08-05 15:37] LABS: Prothrombin Time 13.2 Seconds (11.1-14.7)
[2024-08-05 15:38] LABS: Partial Thromboplastin Time 25.4 Seconds (22.3-36.8)
== END 2024-08-05 13:56 | disposition home or self-care (01) ==
PROVIDERS: PCP Family Medicine; Visit Provider Urology
DX: Z01.812 Encounter for preprocedural laboratory examination (principal); N81.9 Female genital prolapse, unspecified
CPT/HCPCS: 36415; 80053; 85025; 85610; 85730; 86850; 86900; 86901

== ENCOUNTER 2024-08-12 00:15 | Day surgery (SDC) | payer MEDICARE, SELFPAY ==
[2024-08-05 14:17] VITALS: BP 116/71; PULSE 72; RESP 16; TEMP 36.2; O2SAT 99; BMI 34.7
--- NOTE | 2024-08-05 14:36 | PC.NURSE ---
Report to the Outpatient Waiting Room, entrance under the green pavilion located off [facility], at time ___6:00AM____ on date ____08/12/24___. Planned Procedure Time: ___7:30AM .? Time changes happen often and if your time is changed the preop area will call you the afternoon before. - You and your visitor will be asked to self-screen and do not enter if you have any COVID symptoms. Please call surgeon if you need to reschedule. - A mask is optional within the hospital at this time. Patients may have clear liquids (water, carbonated beverages, clear teas, apple juice) until 3 hours prior to surgery with a maximum of 20 ounces. - No food from midnight until time of surgery and no smoking. Take only the following medications with a SIP of water on the morning of surgery: ___LEVOTHYROXINE. MAY TAKE ALPRAZOLAM & BUTALBITAL NEEDED. DO NOT STOP ANY OF YOUR OTHER PRESCRIPTION MEDICATIONS PRIOR TO SURGERY EXCEPT THE FOLLOWING Medications to discontinue per physician HOLD EXCEDRIN & ALL VITAMINS/SUPPLEMENTS 7 DAYS PRE-OP PER DR GARZA____ Date to take last dose 08/04/24 Please no make-up, nail syriac, hairspray, perfume, deodorant, or body powder the day of surgery.? No jewelry (including any body piercings) or valuables the day of surgery, leave them at home.? Please take a shower or bath the night before, or the morning of, surgery with an antibacterial soap.? Wear comfortable, loose fitting clothing.? - Jewelry must be removed prior to entering the operating room.? Rings and piercings that are not removed may be cut off. - The hospital will not accept responsibility for valuables.? - Please leave all valuables, including medications, at home the day of surgery. If you are going home after surgery, a licensed team driver must drive you home.? - NO public transportation without another adult if you receive anesthesia. - We recommend that an adult stay with you for 24 hours following discharge. - We also recommend that you do not drive, make important decision, drink alcoholic beverages, or take any drugs that were not prescribed by your health care provider for at least 24 hours after your discharge time. Follow any additional instructions given to you from your surgeon. Telephone instructions given to ___PATIENT and asked if any additional questions and then verbalized understanding. Patient advised to call surgeon office or pre surgery nurse liaison [phone] if any additional questions.
--- NOTE | 2024-08-07 11:50 | PM.IMHP ---
H&P: HPI History of Present Illness Date/Time: 08/07/24 11:50 Chief Complaint: Prolapse Narrative: 74-year-old female 3 para 3 admitted for robotic supracervical hysterectomy bilateral salpingo-oophorectomy and sacral colpopexy. Risks and benefits reviewed thoroughly with the patient. She had all questions answered and asked to proceed PMFSH Past Medical History Medical History Chronic headaches History of chicken pox History of measles History of mumps History of rubella RUDDY (obstructive sleep apnea) Family History Family History Sibling Hypertension Mother Patient's mother is Family history of lung cancer Father Patient's father is Family history of lung cancer Other Family history of malignant neoplasm of breast Social History Social History Social History: Caffeine-daily Smoking packs per day: 0.75 Smoking cigarettes per day: 15.0 Years smoked: 15 Smoking pack-years: 11.25 Smoking status: Former smoker Tobacco type: cigarettes Smoking end date: 03/25/87 Alcohol intake: current Alcohol use details: Rarely Substance use: never Substance use type: does not use Do You Feel Safe in your Home?: Yes Lack of Transportation: No Lack of Food: Never True Current Housing: I Have Housing Concerned About Future Housing: No Difficulty Paying Gas/Electric Bills: No Difficulty Paying for Meds: No Currently Unemployed: No Education: High School Diploma/GED Difficulty w/ Childcare or Family Care: No Living arrangements: alone Gender identity (if verbalized by the patient): Female Spiritual care concerns: No Meds Home Medications and Allergies Home Medications Medication Instructions Recorded Confirmed Type ascorbic acid (vitamin C) 1,000 mg 1 g PO DAILY 07/31/20 08/05/24 History tablet cholecalciferol (vitamin D3) 25 25 mcg PO DAILY 07/31/20 08/05/24 History mcg (1,000 unit) capsule fctrflpu-zbgs-bncu 8 mg-folic 400 1 tablet PO DAILY #90 tabs 09/29/20 08/05/24 Rx mcg-K 50 mcg-lutein 300 mcg tablet (Multivitamin Women 50 Plus) CPAP 02/06/23 07/30/24 History alprazolam 0.25 mg tablet 0.25 mg PO TID PRN anxiety #90 tabs 10/10/23 08/05/24 Rx triamterene 37.5 1 cap PO QAM #90 caps 03/26/24 08/05/24 Rx mg-hydrochlorothiazide 25 mg capsule levothyroxine 88 mcg tablet See Rx Instructions .Route 04/18/24 08/05/24 Rx (Euthyrox) .COMPLEX #90 tabs atorvastatin 20 mg tablet 20 mg PO QHS #90 tabs 06/17/24 08/05/24 Rx metformin 500 mg tablet,extended 1,000 mg PO BID #360 tabs 06/17/24 08/05/24 Rx release 24 hr vshqfjx-wcolofnmqbrxr-zlabixix 250 1 tablet PO Q4-6H PRN Pain 08/05/24 08/05/24 History mg-250 mg-65 mg tablet (Excedrin Extra Strength) ksjjyewfmt-gpfjsgyjbdwfw-livqrcyd 1 tablet PO BID PRN HEADACHES 08/05/24 08/05/24 History 50 mg-325 mg-40 mg tablet Allergies Allergy/AdvReac Type Severity Reaction Status Date / Time lisinopril AdvReac Unknown Cough Verified 08/05/24 14:10 Exam Const: General: cooperative, healthy appearing, comfortable and average body habitus Orientation/consciousness: oriented to person, oriented to place and oriented to time Resp: Effort & Inspection: normal respiratory effort Cardio: Rate: regular rate Rhythm: regular rhythm Heart sounds: S1 normal heart sound present and S2 normal heart sound present GI: Inspection: normal to inspection : External Female Exam: normal external appearance Speculum Exam - Vagina: normal appearance of the vagina (Prolapse noted) Speculum Exam - Cervix: normal appearance of the cervix Bimanual exam- vagina & uterus: soft Bimanual Exam- Adnexa, other: normal adnexae Assessment and Plan Assessment and plan (1) Uterine prolapse: Code(s): N81.4 - Uterovaginal prolapse, unspecified Status: Acute Assessment and Plan: Proceed with supracervical hysterectomy and bilateral salpingo-oophorectomy via robot
--- NOTE | 2024-08-11 13:43 | PM.IMHP ---
H&P: HPI History of Present Illness Date/Time: 08/11/24 13:43 Chief Complaint: POP Narrative: POP no VIVI h/o DIVERTICULITIS Review of Systems Review of Systems: All systems reviewed & are unremarkable except as noted in HPI and below PMFSH Past Medical History Medical History Chronic headaches History of chicken pox History of measles History of mumps History of rubella RUDDY (obstructive sleep apnea) Family History Family History Sibling Hypertension Mother Patient's mother is Family history of lung cancer Father Patient's father is Family history of lung cancer Other Family history of malignant neoplasm of breast Social History Social History Social History: Caffeine-daily Smoking packs per day: 0.75 Smoking cigarettes per day: 15.0 Years smoked: 15 Smoking pack-years: 11.25 Smoking status: Former smoker Tobacco type: cigarettes Smoking end date: 03/25/87 Alcohol intake: current Alcohol use details: Rarely Substance use: never Substance use type: does not use Do You Feel Safe in your Home?: Yes Lack of Transportation: No Lack of Food: Never True Current Housing: I Have Housing Concerned About Future Housing: No Difficulty Paying Gas/Electric Bills: No Difficulty Paying for Meds: No Currently Unemployed: No Education: High School Diploma/GED Difficulty w/ Childcare or Family Care: No Living arrangements: alone Gender identity (if verbalized by the patient): Female Spiritual care concerns: No Meds Home Medications and Allergies Home Medications Medication Instructions Recorded Confirmed Type ascorbic acid (vitamin C) 1,000 mg 1 g PO DAILY 07/31/20 08/05/24 History tablet cholecalciferol (vitamin D3) 25 25 mcg PO DAILY 07/31/20 08/05/24 History mcg (1,000 unit) capsule nfyuwpcr-wiht-socb 8 mg-folic 400 1 tablet PO DAILY #90 tabs 09/29/20 08/05/24 Rx mcg-K 50 mcg-lutein 300 mcg tablet (Multivitamin Women 50 Plus) CPAP 02/06/23 07/30/24 History triamterene 37.5 1 cap PO QAM #90 caps 03/26/24 08/05/24 Rx mg-hydrochlorothiazide 25 mg capsule levothyroxine 88 mcg tablet See Rx Instructions .Route 04/18/24 08/05/24 Rx (Euthyrox) .COMPLEX #90 tabs atorvastatin 20 mg tablet 20 mg PO QHS #90 tabs 06/17/24 08/05/24 Rx metformin 500 mg tablet,extended 1,000 mg PO BID #360 tabs 06/17/24 08/05/24 Rx release 24 hr qfpwkbt-fsrykprsbuglz-xunmvfgd 250 1 tablet PO Q4-6H PRN Pain 08/05/24 08/05/24 History mg-250 mg-65 mg tablet (Excedrin Extra Strength) alprazolam 0.25 mg tablet 0.25 mg PO TID PRN anxiety #90 tabs 08/08/24 Rx cihzmwrrad-qfdygblfqgehx-hgaslkoa 1 tablet PO BID PRN HEADACHES #20 08/08/24 Rx 50 mg-325 mg-40 mg tablet tabs Allergies Allergy/AdvReac Type Severity Reaction Status Date / Time lisinopril AdvReac Unknown Cough Verified 08/05/24 14:10 Exam Narrative: NAD Anterior +3 [place] -1 Assessment and Plan Assessment and plan (1) Uterine prolapse: Code(s): N81.4 - Uterovaginal prolapse, unspecified Status: Acute Assessment and Plan: robotic Sacral Colpopexy
[2024-08-12] VITALS (11 sets, daily range): BP systolic 98–128; BP diastolic 41–94; PULSE 68–86; RESP 14–18; TEMP 36–36.6; O2SAT 94–100
--- NOTE | 2024-08-12 04:39 | WPDHPUPDATE1 ---
History and Physical Update Update Date/Time: 08/12/24 04:39 History and Physical has been reviewed, including an updated exam of the patient. There are NO changes in the patient's condition. Risks, benefits, and alternatives have been discussed and questions answered. Patient agrees to proceed with procedure.
--- NOTE | 2024-08-12 06:49 | WPDHPUPDATE1 ---
History and Physical Update Update Date/Time: 08/12/24 06:49 History and Physical has been reviewed, including an updated exam of the patient. There are NO changes in the patient's condition. Risks, benefits, and alternatives have been discussed and questions answered. Patient agrees to proceed with procedure.
[2024-08-12 07:10] LABS: Glucose Point of Care 148 mg/dl (65-105)
--- NOTE | 2024-08-12 07:22 | WPDANESEPPF ---
Anes - Initial Pre Proc Eval Procedure: Operation Date: 08/12/24 07:30 Proposed Procedures p Robotic Sacrocolpopexy, Urethral Sling - Marlon Encarnacion MD s Robotic Assisted Supracervical Hysterectomy With Bilateral Salpingo-oophorectomy - Nick Cárdenas MD Date/Time: 08/12/24 07:22 Surgeon: Marlon Encarnacion MD Pre Op Diagnosis: uterine prolpase, stress incont Patient Data Age: 74 Gender: F Height: 1.73 m Weight: 103.8 kg Last Vital Signs Temp 36.2 C L 08/05/24 14:17 Pulse 72 08/05/24 14:17 Resp 16 08/05/24 14:17 BP 116/71 08/05/24 14:17 Pulse Ox 99 08/05/24 14:17 O2 Del Method Room Air 08/05/24 14:17 Allergies Allergy/AdvReac Type Severity Reaction Status Date / Time lisinopril AdvReac Unknown Cough Verified 08/05/24 14:10 Home Medications Medication Instructions Recorded Confirmed Type ascorbic acid (vitamin C) 1,000 mg 1 g PO DAILY 07/31/20 08/05/24 History tablet cholecalciferol (vitamin D3) 25 25 mcg PO DAILY 07/31/20 08/05/24 History mcg (1,000 unit) capsule iohzbibt-hhnh-xgas 8 mg-folic 400 1 tablet PO DAILY #90 tabs 09/29/20 08/05/24 Rx mcg-K 50 mcg-lutein 300 mcg tablet (Multivitamin Women 50 Plus) CPAP 02/06/23 07/30/24 History triamterene 37.5 1 cap PO QAM #90 caps 03/26/24 08/05/24 Rx mg-hydrochlorothiazide 25 mg capsule levothyroxine 88 mcg tablet See Rx Instructions .Route 04/18/24 08/05/24 Rx (Euthyrox) .COMPLEX #90 tabs atorvastatin 20 mg tablet 20 mg PO QHS #90 tabs 06/17/24 08/05/24 Rx metformin 500 mg tablet,extended 1,000 mg PO BID #360 tabs 06/17/24 08/05/24 Rx release 24 hr dxplwob-keiqpwpzlwlqg-xnikpmpq 250 1 tablet PO Q4-6H PRN Pain 08/05/24 08/05/24 History mg-250 mg-65 mg tablet (Excedrin Extra Strength) alprazolam 0.25 mg tablet 0.25 mg PO TID PRN anxiety #90 tabs 08/08/24 Rx gxivrpvocq-dnbrfbhgzymms-taiaipvb 1 tablet PO BID PRN HEADACHES #20 08/08/24 Rx 50 mg-325 mg-40 mg tablet tabs Laboratory Tests 08/12/24 07:06 POC Capillary Glucose 148 H mg/dl (65-105) Patient hx anesthesia problems: post op nausea/vomiting Family hx anesthesia problems: none Results Review: All pre-operative results and documents have been reviewed as part of the pre-operative evaluation. [facility] Past Medical History Medical History Chronic headaches History of chicken pox History of measles History of mumps History of rubella RUDDY (obstructive sleep apnea) Family History Family History Sibling Hypertension Mother Patient's mother is Family history of lung cancer Father Patient's father is Family history of lung cancer Other Family history of malignant neoplasm of breast Social History Social History Social History: Caffeine-daily Smoking packs per day: 0.75 Smoking cigarettes per day: 15.0 Years smoked: 15 Smoking pack-years: 11.25 Smoking status: Former smoker Tobacco type: cigarettes Smoking end date: 03/25/87 Alcohol intake: current Alcohol use details: Rarely Substance use: never Substance use type: does not use Do You Feel Safe in your Home?: Yes Lack of Transportation: No Lack of Food: Never True Current Housing: I Have Housing Concerned About Future Housing: No Difficulty Paying Gas/Electric Bills: No Difficulty Paying for Meds: No Currently Unemployed: No Education: High School Diploma/GED Difficulty w/ Childcare or Family Care: No Living arrangements: alone Gender identity (if verbalized by the patient): Female Spiritual care concerns: No Anes - Eval Final PreProcedure Day of Procedure 08/12/24 07:22 Patient weight: obese Heart: regular rate and rhythm Lungs: clear to auscultation and normal air movement Airway: Mallampati scale class III Neurological: alert and oriented Last oral intake: >/= 8 hours ASA classification: III Emergent: no Anesthetic plan: proceed Anesthesia type and monitoring: general ETT and standard monitoring Results Review: All pre-operative results and documents have been reviewed as part of the pre-operative evaluation. Informed Consent: The patient's anesthetic plan and its attendant risks and benefits were discussed with the patient/family/POA. Questions were solicited and answers provided to the satisfaction of the patient/family/POA.
[2024-08-12] MEDS: ACETAMINOPHEN 500 MG TABLET 1000 MG PO (07:30)
[2024-08-12] MEDS: LACTATED RINGERS 1,000 ML 30 ML IV CONT ×2 (07:30→10:14)
[2024-08-12] MEDS: ceFAZolin 2 GM/D5W 50 ML 2 GM/50 ML BAG IVPB (07:38)
[2024-08-12] MEDS: metroNIDAZOLE 500 MG/ISO 100ML 500 MG/100 ML BAG 100 MG IVPB ×2 (07:50→15:52)
--- NOTE | 2024-08-12 08:20 | P.OP_ITS ---
Procedure Note - Detailed Date of Procedure 08/12/24 Pre-op Diagnosis uterine prolpase, stress incont Post-op Diagnosis Same Procedure Performed Robotic supracervical hysterectomy and bilateral salpingo-oophorectomy Surgeon Nick Cárdenas MD Anesthesia General Indications 74-year-old female with uterine prolapse Findings uterine prolapse. Large vascular area surrounding the left and right adnexa. Description of Procedure Patient was prepped draped in normal sterile fashion placed in the dorsal lithotomy position. Under excellent general trach anesthesia weighted speculum placed in posterior fornix vagina. Anterior lip of the cervix grasped with single-tooth tenaculum. Muhammad's cannula inserted the cervix attached to the single-tooth to be used later for uterine manipulation. The bladder was then drained with a 16 [place] catheter and a weighted speculum was removed. The gloves were changed and Dr. Encarnacion proceeded to Dr. Kulkarni. Please see his operative report for full details Attention was turned to the middle school counselor. The left round ligament was grasped, burned, cut. Anterior bladder flap was formed by sharply dissecting the peritoneum and reflecting this post caudally away from the cervix uterus the opposite round ligament was clamped, burned, cut. Next the left infundibulopelvic structure was skeletonized to remove the left ovary and tube this was serially clamped, burned, cut and brought to level of previous cut round ligament. In similar fashion the infundibulopelvic structure on the right was skeletonized to remove the right ovary and tube. This was clamped, burned, cut. Next the cardinal broad ligaments on the left were skeletonized clamping burning cutting until the uterine vessels could be seen on the left these were individually clamped, burned, cut. In similar fashion the cardinal broad ligaments on the right were serially skeletonized clamping burning cutting until the uterine vessels could be seen on the right these were individually clamped, burned, cut. Blanching the uterus was noted a supracervical incision made this was placed in an Endo-Catch blood loss was 1cc to this point Dr. Encarnacion proceeded with the sacral colpopexy at that point there were no immediate complications Estimated Blood Loss 1 Drains No Packing No Pathology Yes Complications No immediate complications Condition Stable Disposition No change
[2024-08-12] MEDS: BUPIVACAINE/EPINEPHRINE 0.5% 50 ML VIAL 20 ML INFILTRATE (09:41)
--- NOTE | 2024-08-12 10:07 | P.OP_ITS ---
Procedure Note - Detailed Date of Procedure 08/12/24 Pre-op Diagnosis uterine prolpase Post-op Diagnosis Same Procedure Performed Robotic assisted laparoscopic sacral colpopexy Cystoscopy Surgeon Marlon Encarnacion MD Anesthesia General Indications Distal with uterine prolapse without stress incontinence. She desires surgical correction. She is here for the above. She understands risks of bleeding, infection, diskitis, damage to surrounding organs, bowel injury, bowel obstruction, mesh related complications including exposure and extrusion, postoperative voiding dysfunction including incontinence and retention, need for ancillary procedures, dyspareunia, recurrence of prolapse, and other perioperative intraoperative postoperative complications. She agrees to proceed. Findings See below Description of Procedure She was correctly identified. Informed consent obtained. She from the operating room. She was given general anesthesia. She was given appropriate perioperative antibiotics. She was placed a low lithotomy position. Pressure points were padded. A time-out performed. I marked out the skin 3 fingerbreadths cephalad to the umbilicus. I anesthetized the skin. I incised the skin. I dissected down to the fascia. I grasped the fascia with Reyna clamps. I entered the fascia sharply in a Bowser type technique. I placed sutures for later fascial closure. I placed a midline trocar. I examined the abdomen. There is no sign of any injury. Under direct vision I placed 2 additional trocars in the right upper quadrant and 2 additional trocars the left upper quadrant. She was placed in steep Trendelenburg. The robot was docked. Her tenant selector completed their portion of the procedure. Please see that operative report for details. I then sat at the console. The Sizer in the vagina created plane on the anterior and posterior vaginal wall. I took great care not to injure the vagina, bladder, or rectum. I introduced the mesh into the abdomen. I sewed the anterior leaflet of mesh on the anterior vaginal wall. I sewed the posterior leaflet of mesh on the posterior vaginal wall. This was done with several sutures of 2 0 [place]. I reflected the colon laterally. I opened the posterior peritoneum over the sacral promontory. I carried this into the cul-de-sac. I freed up the edges for later retroperitonealization. I located the anterior longitudinal ligament the sacrum. I cleaned off all fatty tissues. I then tensioned my mesh appropriately. I did a vaginal exam the bedside. I assured prolapse reduction without undue tension. I then sewed the proximal leaflet of mesh onto the anterior longitudinal ligament of the sacrum with 4 sutures of 2 0 [place]. I then used a 2 0 Monocryl to completely and meticulously retroperitonealized all mesh. I allowed the colon to go back to its normal anatomic location. There is no sign of any impingement. The specimen was then removed. All ports removed. Fascia was tied down. Skin was closed with Monocryl and surgical glue. I then performed cystoscopy. There was no tumors or surgical artifact. Bilateral ureteral patency was confirmed. There is no surgical artifact in the bladder or urethra. I cut the excess sling material. Close incision with glue. She was awakened and transferred to PACU in stable condition. Implants Sacral colpopexy mesh Estimated Blood Loss 10 Packing No Pathology None sent Complications No immediate complications Condition Stable Disposition PACU
[2024-08-12] MEDS: fentaNYL CITRATE INJ (*CRX) 100 MCG/2 ML VIAL 25 MCG IV PUSH ×3 (10:30→10:40)
[2024-08-12 11:10] LABS: Glucose Point of Care 172 mg/dl (65-105)
--- NOTE | 2024-08-12 11:50 | ADMGEN ---
This patient, Meaghan Black, was admitted to OB 2nd Floor Room 289-00. Patient/family oriented to hospital policies and general routines including ID bracelet, bed and alarms, visiting hours, pain management, procedures, bathroom and other care routines, personal items, smoking policy, room service/diet, and visiting hours. Information on how to activate the Rapid Response Team has been discussed. Patient/Family are encouraged to report perceived risks to care and to ask questions if they do not understand what they are told or what they should do.
--- NOTE | 2024-08-12 12:15 | P.DS_ITS ---
DS: Admitting Diagnosis Discharge Date 08/13/2024 Admitting Diagnosis Uterine prolapse DS: Discharge Diagnosis Discharge Diagnosis (1) Uterine prolapse: Code(s): N81.4 - Uterovaginal prolapse, unspecified Status: Acute DS: Summary Hospital Course Reason for hospitalization: Patient was admitted for robotic supracervical hysterectomy bilateral salpingo- oophorectomy and sacral colpopexy on 08/12/2024. Hospital Course: Patient's hospital course unremarkable. She remained afebrile. She was up, voiding without difficulty, eating regular diet, ambulating, and generally without complaints. Time Spent with Patient Time attestation: Total time spent providing and/or coordinating discharge services: Exam Const: General: cooperative, healthy appearing and comfortable Nutritional Appearance: average body habitus Orientation/consciousness: oriented to person, oriented to place and oriented to time HENMT: Head: normal to inspection Resp: Effort & Inspection: normal respiratory effort Cardio: Rate: regular rate Rhythm: regular rhythm Heart sounds: S1 normal heart sound present and S2 normal heart sound present GI: Inspection: normal to inspection and incision (Wounds are clean dry and intact) DS: Data Data Completed and Pending Pending studies at discharge: Pending at discharge 08/12/24 08:18 Surgical [PTH] Routine Labs on day of discharge: Labs from last 24 hours 08/12/24 08/12/24 11:08 07:06 POC Capillary Glucose 172 H 148 H Discharge Plan Discharge Patient Disposition: Home, Self-Care Discharge Instructions: No lifting >20lb, exercise for 6 weeks No tub bath or pool for 2 weeks No [place] 6 weeks Stand Alone Forms: General Discharge Instructions Follow-up/Referrals: Marlon Encarnacion MD [Physician] - Nick Oliver MD [Physician] - Discharge Medications: New docusate sodium [Colace] 100 mg capsule 100 mg PO BID Qty: 40 0RF hydrocodone-acetaminophen 5-325 mg tablet 1 tablet PO Q6H PRN (Reason: pain) Qty: 20 0RF Continued ascorbic acid (vitamin C) 1,000 mg tablet 1 g PO DAILY cholecalciferol (vitamin D3) 25 mcg (1,000 unit) capsule 25 mcg PO DAILY Excedrin Extra Strength 250-250-65 mg Tablet 1 tablet PO Q4-6H PRN (Reason: Pain) Multivitamin Women 50 Plus 8 mg iron-400 mcg-300 mcg tablet 1 tablet PO DAILY Qty: 90 3RF triamterene-hydrochlorothiazid 37.5-25 mg capsule 1 cap PO QAM Qty: 90 1RF levothyroxine [Euthyrox] 88 mcg tablet See Rx Instructions .ROUTE .COMPLEX Qty: 90 3RF Dose Instruction: Take 1 tablet by mouth once daily Rx Instructions: Take 1 tablet by mouth AM metformin 500 mg tablet extended release 24 hr 1,000 mg PO BID Qty: 360 1RF atorvastatin 20 mg tablet 20 mg PO QHS Qty: 90 1RF alprazolam 0.25 mg tablet 0.25 mg PO TID PRN (Reason: anxiety) Qty: 90 1RF fucirgmzmj-efodannmqklwj-pcxv 50-325-40 mg tablet 1 tablet PO BID PRN (Reason: HEADACHES) Qty: 20 2RF No Action (DME) CPAP See Rx Instructions .Route .MEDSUPPLY Rx Instructions: AutoPAP 5-15 cm H2O, CPAP mask/filters/tubing and humidifier chamber
[2024-08-12] MEDS: KCL 20 MEQ/D5/0.45% SOD CHL 1,000 ML 100 ML IV CONT (12:31)
[2024-08-12] MEDS: KETOROLAC 15 MG/ML VIAL (*BKC) IV PUSH ×2 (12:32→20:20)
[2024-08-12] MEDS: LACTATED RINGERS 1,000 ML 100 ML IV CONT (13:12)
[2024-08-12] MEDS: ACETAMINOPHEN/BUTALBITAL/CAFFEINE 325-50-40 MG TABLET (FIORICET) 1 TAB PO (14:58)
[2024-08-12] MEDS: ceFAZolin 1 GM/NS 50 ML 1 GM/50 ML BAG IVPB (15:00)
[2024-08-12 15:57] LABS: Glucose Point of Care 146 mg/dl (65-105)
[2024-08-12] MEDS: metFORMIN HCL XR 500 MG TAB.SR.24H 1000 MG PO (17:09)
[2024-08-12] MEDS: HYDROcodone/acetaminophen (*CRX) 5-325 MG TABLET 1 TAB PO (19:16)
[2024-08-12 19:30] LABS: Glucose Point of Care 162 mg/dl (65-105)
[2024-08-12] MEDS: ATORVASTATIN 20 MG TABLET PO (20:20)
[2024-08-13] MEDS: HYDROcodone/acetaminophen (*CRX) 5-325 MG TABLET 1 TAB PO ×2 (04:21→09:07)
[2024-08-13 04:30] VITALS: BP 106/60; PULSE 67; RESP 18; TEMP 36.6; O2SAT 96
[2024-08-13] MEDS: LEVOTHYROXINE SODIUM 88 MCG TABLET BY MOUTH (06:45)
[2024-08-13 07:21] LABS: Glucose Point of Care 114 mg/dl (65-105)
--- NOTE | 2024-08-13 07:29 | P.PNOB_ITS ---
RESEARCH MANAGEMENT ASSOCIATE - A/P Postoperative Procedures: Procedures Operation Date: 08/12/24 07:30 Actual Procedure Side Surgeon p Robotic Sacrocolpopexy, cystoscopy Not Applicable Marlon Encarnacion MD s Robotic Assisted Supracervical Hysterectomy With Bilateral Salpingo-oop horectomy Bilateral Nick Cárdenas MD Postoperative day: 1 Postoperative status: doing well Postoperative plan: routine post-op care, see orders, ambulate, advance diet, voiding trials and discharge Time Spent With Patient Time: Total time spent is greater than 50% in coordination of care (as documented) at patient's floor/unit and/or counseling patient: Time with patient: less than 15 minutes RESEARCH MANAGEMENT ASSOCIATE- PN:Subj Post-Op Subjective Date/time seen: 08/13/24 07:29 Subjective: patient reports feeling better, patient has no complaints, patient desires discharge, pain is well controlled and patient is tolerating oral intake Exam Const: General: cooperative, healthy appearing and comfortable Nutritional Appearance: average body habitus HENMT: Head: normal to inspection Resp: Effort & Inspection: normal respiratory effort Cardio: Rate: regular rate Rhythm: regular rhythm Heart sounds: S1 normal heart sound present and S2 normal heart sound present GI: Inspection: normal to inspection and incision (cdi) RESEARCH MANAGEMENT ASSOCIATE - PN: Obj Data Vital Signs Vital Signs: Vital Signs - 24 hr 08/12/24 07:30 08/12/24 10:14 08/12/24 10:30 Temperature 96.8 F L 97.9 F Pulse Rate 78 84 68 Respiratory Rate 14 18 18 Blood Pressure 125/58 L 128/72 124/68 Pulse Oximetry 98 100 100 Oxygen Delivery Room Air High Flow Therapy with Fa High Flow Therapy with Fa Oxygen Flow Rate 8 8 08/12/24 10:45 08/12/24 11:00 08/12/24 11:15 Temperature 97.6 F Pulse Rate 74 86 73 Respiratory Rate 16 16 16 Blood Pressure 116/84 108/75 102/85 Pulse Oximetry 100 97 95 Oxygen Delivery High Flow Therapy with Fa Room Air Room Air Oxygen Flow Rate 8 08/12/24 11:30 08/12/24 11:50 08/12/24 11:50 Temperature 97.4 F L Pulse Rate 68 77 Respiratory Rate 18 16 Blood Pressure 111/76 116/60 Pulse Oximetry 95 96 Oxygen Delivery Room Air Room Air Oxygen Flow Rate 08/12/24 15:10 08/12/24 15:10 08/12/24 20:25 Temperature 97.9 F 97.9 F Pulse Rate 71 68 Respiratory Rate 16 18 Blood Pressure 112/57 L 120/94 H Pulse Oximetry 94 99 Oxygen Delivery Room Air Oxygen Flow Rate 08/12/24 20:25 08/12/24 23:36 08/12/24 23:36 Temperature 97.9 F Pulse Rate 68 71 71 Respiratory Rate 18 16 16 Blood Pressure 98/41 L Pulse Oximetry 99 97 97 Oxygen Delivery Room Air Room Air Oxygen Flow Rate 08/13/24 04:30 08/13/24 04:30 Temperature 98 F Pulse Rate 67 67 Respiratory Rate 18 18 Blood Pressure 106/60 Pulse Oximetry 96 96 Oxygen Delivery Room Air Oxygen Flow Rate Intake/Output Intake/Output: Intake & Output 08/10/24 08/11/24 08/12/24 08/13/24 23:59 23:59 23:59 23:59 Intake Total 1397 200 Output Total 850 225 Balance 547 -25 Meds/Results Medications: Active Medications Generic Name Dose Route Start Last Admin Trade Name Freq PRN Reason Stop Dose Admin Acetaminophen 650 mg 08/12/24 11:46 Acetaminophen 325 Mg Tablet PO Q4H PRN Mild Pain (1-3) or Fever Acetaminophen/Butalbital/Caffeine 1 tab 08/12/24 12:56 08/12/24 14:58 Acetaminophen/Butalbital/Caffeine 325-50-40 Mg Tablet (Fioricet) PO 1 tab Q4H PRN Administration Headache Hydrocodone Bitart/Acetaminophen 1 tab 08/12/24 11:46 08/13/24 04:21 Hydrocodone/Acetaminophen (*Crx) 5-325 Mg Tablet PO 1 tab Q4H PRN Administration Pain Rated 4-5 Alprazolam 0.25 mg 08/12/24 11:46 Alprazolam (*Crx) 0.25 Mg Tablet PO TID PRN anxiety Atorvastatin Calcium 20 mg 08/12/24 21:00 08/12/24 20:20 Atorvastatin 20 Mg Tablet PO 20 mg QHS SAUL Administration Cephalexin HCl 500 mg 08/13/24 09:00 Cephalexin 500 Mg Capsule PO QID SAUL Dextrose 12.5 gm 08/12/24 11:46 Dextrose 50% 25 Gm/50 Ml Syringe IV PUSH PRN PRN Hypoglycemia Protocol Diphenhydramine HCl 25 mg 08/12/24 11:46 Diphenhydramine Hcl Inj 50 Mg/Ml Vial IV PUSH Q6H PRN Itching Docusate Sodium 100 mg 08/13/24 09:00 Docusate Sodium 100 Mg Capsule PO DAILY [facility] Enoxaparin Sodium 30 mg 08/13/24 09:00 Enoxaparin 30 Mg/0.3 Ml Syringe SUB-Q DAILY [facility] Glucagon 1 mg 08/12/24 11:46 Glucagon For Inj 1 Mg Vial IM PRN PRN Hypoglycemia Protocol Glucose 15 gm 08/12/24 11:46 Glucose Oral Gel 15 Gm Of Glucse In 37.5 Gm Tube PO PRN PRN Hypoglycemia Protocol Dextrose 1,000 mls @ 100 mls/hr 08/12/24 11:46 Dextrose 5% 1,000 Ml IVPB PRN PRN Hypoglycemia Protocol Insulin Aspart 3 - 6 units 08/12/24 12:00 08/12/24 15:58 Insulin Aspart (*Bkc) 100 Units/Ml SUB-Q Not Given TIDWM [facility] Protocol Levothyroxine Sodium 88 mcg 08/13/24 06:30 08/13/24 06:45 Levothyroxine Sodium 88 Mcg Tablet BY MOUTH 88 mcg DAILY@0630 [facility] Administration Metformin HCl 1,000 mg 08/12/24 17:00 08/12/24 17:09 Metformin Hcl Xr 500 Mg Tab.Sr.24h PO 1,000 mg BIDWM [facility] Administration Morphine Sulfate 2 mg 08/12/24 11:46 Morphine Sulfate (*Crx) 2 Mg/Ml Inj IV PUSH Q2H PRN Pain Rated 6 or Greater Ondansetron HCl 4 mg 08/12/24 11:46 Ondansetron Inj 4 Mg/2 Ml Vial IV PUSH Q6H PRN Nausea And Vomiting Triamterene/Hydrochlorothiazide 1 tab 08/13/24 09:00 Triamterene 37.5 Mg/Hctz 25 Mg (Maxzide) Tablet PO QAM [facility] Zolpidem Tartrate 5 mg 08/12/24 11:46 Zolpidem Tartrate (*Crx) 5 Mg Tablet PO HS PRN Insomnia Labs Labs: Laboratory Results - last 24 hr 08/12/24 08/12/24 08/12/24 11:08 15:49 19:18 POC Capillary Glucose 172 H 146 H 162 H 08/13/24 07:17 POC Capillary Glucose 114 H
[2024-08-13] MEDS: CEPHALEXIN 500 MG CAPSULE PO (09:06)
[2024-08-13] MEDS: DOCUSATE SODIUM 100 MG CAPSULE PO (09:06)
[2024-08-13] MEDS: metFORMIN HCL XR 500 MG TAB.SR.24H 1000 MG PO (09:07)
--- NOTE | 2024-08-13 09:24 | WPDANESPN ---
Anes - Prog Note Post-Op Date/Time: 08/13/24 09:24 Cardiovascular status: normal Respiratory status: normal Airway patency: baseline Mental status: baseline Post-Op hydration status: normal Vital Signs: Last Vital Signs Temp 36.6 C 08/13/24 04:30 Pulse 67 08/13/24 04:30 Resp 18 08/13/24 04:30 BP 106/60 08/13/24 04:30 Pulse Ox 96 08/13/24 04:30 O2 Del Method Room Air 08/13/24 04:30 O2 Flow Rate 8 08/12/24 10:45 Pain Score (VAS): 10/04 I/O: Intake & Output 08/12/24 08/13/24 08/13/24 23:59 07:59 15:59 Intake Total 690 200 Output Total 350 225 Balance 340 -25 08/12/24 08/12/24 08/12/24 11:08 15:49 19:18 POC Capillary Glucose 172 H 146 H 162 H 08/13/24 07:17 POC Capillary Glucose 114 H Post-procedural complaints: none Patient Feedback: Patient satisfied with anesthetic care.
[2024-08-13 09:31] VITALS: BP 109/54; PULSE 65; RESP 18; TEMP 36.6; O2SAT 100
[2024-08-13] MEDS: ENOXAPARIN 30 MG/0.3 ML SYRINGE SUB-Q (09:39)
== END 2024-08-13 09:52 | disposition home or self-care (01) ==
LOC: ANHSURGERY 06:15 → ANHOB2 11:48
PROVIDERS: Obstetrics & Gynecology; PCP Family Medicine; Visit Provider Urology
PROC: (CPT 57425; principal; 2024-08-12 07:30)
PROC: 0UT94ZZ Resection of Uterus, Percutaneous Endoscopic Approach (ICD-10-PCS; CPT 57425; 2024-08-12 07:30)
DX: N81.4 Uterovaginal prolapse, unspecified (principal); N39.3 Stress incontinence (female) (male); N84.0 Polyp of corpus uteri; G47.33 Obstructive sleep apnea (adult) (pediatric); Z87.891 Personal history of nicotine dependence; Z79.84 Long term (current) use of oral hypoglycemic drugs; E66.9 Obesity, unspecified; Z68.34 Body mass index [BMI] 34.0-34.9, adult
CPT/HCPCS: 57425; 58542; S2900 ×2; 82948; 88307; 99199; A9270; C1769; C1781; J0690; J1100; J1171; J1200; J1650; J1836; J1885; J2003; J2405; J2704; J3010; J3480; J7030; J7120

== ENCOUNTER 2025-06-27 10:37 | Outpatient (CLI) | payer MEDICARE, SELFPAY ==
--- NOTE | ~2025-06-27 | XR_ITS ---
EXAMINATION: XR hip RT 2V w AP pelvis, 06/27/2025 10:45 CDT HISTORY: Pain in right hip x 3 weeks COMPARISON: No comparisons available. Findings: No acute fracture or malalignment. No significant degenerative changes. Soft tissues unremarkable. Impression: No acute fracture or malalignment. Reviewed, dictated and finalized at location P. Impression: No acute fracture or malalignment.
== END 2025-06-27 10:38 | disposition home or self-care (01) ==
LOC: GOSHIMG 10:40
PROVIDERS: PCP Family Medicine; Visit Provider Family Medicine
DX: M25.551 Pain in right hip (principal)
CPT/HCPCS: 73502

== ENCOUNTER 2025-07-28 13:36 | Outpatient (CLI) | payer MEDICARE, SELFPAY ==
--- NOTE | ~2025-07-28 | XR_ITS ---
PROCEDURE(S): Left shoulder radiography, minimum 2 views INDICATION(S): Pain COMPARISON(S): None. TECHNIQUE: 4 radiographic images were submitted for interpretation. FINDINGS: Bones: There are no fractures seen. There are no destructive lesions or other lesions identified. Joints: There are no dislocations identified. There is no evidence of erosive arthropathy. Mild osteoarthritic type change of the AC joint. IMPRESSION: No acute abnormalities are seen. 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
--- NOTE | ~2025-07-28 | XR_ITS ---
[id number] Indication: M79.622 - Pain in left upper arm Comparison: None Findings: Grade 1 retrolisthesis of C5 on C6, no fracture is identified. Severe loss of disc height C5-C6 and C6-7. Soft tissues unremarkable Impression: No acute abnormality. Reviewed, dictated and finalized at location P. MATIC SYSTEM CONVEYOR OPERATOR Impression: No acute abnormality.
== END 2025-07-28 13:37 | disposition home or self-care (01) ==
PROVIDERS: PCP Family Medicine; Visit Provider Nurse Practitioner Family
DX: M79.622 Pain in left upper arm (principal); M54.12 Radiculopathy, cervical region
CPT/HCPCS: 72040; 73030